=== PATIENT | female | born 1990 | race Caucasian/White ===

== ENCOUNTER 2017-11-10 12:06 | Emergency (ER) | END 2017-11-10 16:32 | disposition home or self-care (01) ==

== ENCOUNTER 2018-02-15 16:58 | Outpatient (CLI) | END 2018-02-15 23:37 | disposition home or self-care (01) ==

== ENCOUNTER 2018-02-16 21:40 | Outpatient (CLI) | END 2018-02-16 23:30 | disposition home or self-care (01) ==

== ENCOUNTER 2018-04-23 13:13 | Outpatient (CLI) | END 2018-04-23 17:20 | disposition home or self-care (01) ==

== ENCOUNTER 2018-05-28 12:40 | Inpatient (IN) | END 2018-05-31 17:30 | disposition home or self-care (01) | DRG 766 ==